=== PATIENT | male | born 1970 | race Two or more races ===

== ENCOUNTER 2016-07-09 14:12 | Emergency (ER) | payer MEDICAID ==
[~2016-07-09] VITALS: Ht 160 cm; Wt 88.5 kg
[2016-07-09 14:25] VITALS: BP 92/65
[2016-07-09 15:13] LABS: Basophils # (auto) 0 uL; Basophils % (auto) 0.3 % (0.0-2.0); Eosinophils # (auto) 0.2 uL; Eosinophils % (auto) 4.6 % (0.0-7.0); Hematocrit 27.4 % (41.0-53.0); Hemoglobin 9.2 g/dL (13.5-17.5); Lymphocytes # (auto) 2.1 uL; Lymphocytes % (auto) 42.4 % (10.0-50.0); Mean Corpuscular Hemoglobin 29.3 pg (28.0-32.0); Mean Corpuscular Hgb Conc. 33.4 g/dL (32.0-36.0); Mean Corpuscular Volume 87.6 fL (80.0-100.0); Mean Platelet Volume 10.8 fL (7.4-10.4); Monocytes # (auto) 0.6 uL; Monocytes % (auto) 11.3 % (0.0-12.0); Neutrophils # (auto) 2.1 uL; Neutrophils % (auto) 41.4 % (37.0-80.0); Platelet Count (auto) 87 10^3/uL (140-450); Red Cell Distribution Width 17.4 % (11.6-16.0)
[2016-07-09 15:14] LABS: Albumin 2.9 g/dL (3.4-5.0); BUN/Creatinine Ratio 12.7; Calcium 8.1 mg/dL (8.5-10.1); Potassium 4.5 mmol/L (3.5-5.1)
[2016-07-09 15:17] LABS: INR 1.08 (0.9-1.15); Partial Thromboplastin Time 32.4 sec (22.64-33.71); Prothrombin Time 11.1 sec (9.37-12.3)
[2016-07-09 15:18] LABS: Bilirubin, Total 0.5 mg/dL (0.2-1.0)
== END 2016-07-09 20:30 | disposition left against medical advice (07) ==
LOC: ER 14:12
DX: R42 Dizziness and giddiness (principal); R51 Headache; I95.9 Hypotension, unspecified; Z53.21 Procedure and treatment not carried out due to patient leaving prior to being seen by health care provider
CPT/HCPCS: 36415; 80053; 82962; 85025; 85610; 85730; 93005